=== PATIENT | male | born 1950 | race Native Hawaiian/Other Pacific Islander ===

== ENCOUNTER 2020-07-22 16:22 | Emergency (ER) | payer MEDICARE, MEDICAID ==
[~2020-07-22] VITALS: Ht 177.8 cm; Wt 83.9 kg
--- NOTE | ~2020-07-22 | EMS ---
[facility] [address] [place] [address] EMS Patient Care Report Name: CRISPIN BAUMAN Room: [facility].#: [id number] Admission: 07/22/20 Attend Phys: Discharge: Date of : 52 Report #: [id number] THIS REPORT FOR: //name// Report Transmitted: 07/22/2020 18:19 EMS Care Summary [facility] [place] Incident [id number] @ 07/22/2020 15:23 Incident Location [address] [place] [address] Patient Crispin Bauman Male, 70 Years 1950 Patient Address [address] [place] [address] Patient History Endocrine Condition - Other,Cerebral infarction, unspecified,Hypertension (HTN),Hyperlipidemia, Patient Allergies No known allergies, Patient Medications Eliquis, Zoloft, Lipitor, Fortamet, Neurontin, Sotalol, Chief Complaint Weakness Disposition Transported No Lights/[place] Dispatch Reason Sick Person Transported To [facility] Narrative [facility] dispatched from [facility] to residence for a sick. AOS, [facility] on scene with patient care. received report from [facility] that patient had been seen in the ER several times over the last few weeks for weakness. Upon patient [facility] [address] [place] [address] EMS Patient Care Report Name: CRISPIN BAUMAN [facility] [id number] Admission: 07/22/20 Attend Phys: Discharge: Date of : 52 Report #: [id number] contact, patient was seen laying supine in bed; no adventitious breath sounds, no gross bleeding, no obvious life threats. Patient was A&O x4 with a GCS of 15 complaining of not being able to use the restroom. Family on scene provided further information due to language barrier as patient primarily spoke [place]. Per family, patient was weaker than previously and confirmed that patient had not had a BM in 2 days. A hospital bracelet was observed on patient dated 07-17. Family confirmed that patient was seen in the hospital for weakness and tested positive for COVID. Family stated that patient had been weaker since coming home and that he had not been able to poop since coming home on the then stated that patient had diarrhea when he came home but hasn't been to today or yesterday. initial vitals as charted with 4 lead showing afib with a history of afib. Patient stated at this time that he had not been to the bathroom because "they no put me on the commode". Family adamantly denied this and stated they put him on the commode and that he wasn't able to go each time. Patient refused transport at this time and stated he just wanted help to the commode. Family agreed to place patient on the commode. Patient son transferred patient from supine to sit on the commode via [place] style. EMS stepped outside door with door open for patient privacy. Delay on scene. After a few minutes, family advised that patient did not go to the bathroom. Patient now requested transport to the hospital. Patient requested transport to [place]. Family stated that patient BRITTANY, his daughter, was hospitalized at [place] for COVID and requested transport to [place]. Family spoke with patient in [place] language with patient agreeing to transport to [place]. Due to patient location, the cot could not be placed next to patient. Further delay for patient family to assist him in dressing as patient requested. Once dressed, Patient son transferred patient from commode to wheelchair and patient was wheeled out to the garage to the cot. Patient was assisted to transfer from sit to stand with wheelchair removed from patient and cot placed behind him. Patient was assisted to sit on the cot. Once seated on the cot, seatbelts x4 were applied for patient safety. Patient medical history and medications were obtained from family on scene along with granddaughter contact info and patient daughter name. Family was uncertain of room number for patient daughter. Cot was moved to the unit where it was loaded and locked. In unit, repeat vitals were obtained as charted. Transport initiated. En route, patient vitals were monitored as charted. Patient was able to express no change in condition and denied onset of new symptoms and change in current symptoms. Patient comfort was attended to with position and temperature changes as requested. At destination, patient was removed from the monitor due to stability. Cot was unlocked, unloaded, and moved to the ER. In ER, patient was transferred from EMS cot to hospital bed via draw sheet x4. Verbal report was given to staff along with patient daugther and granddaughter info. Due to language barrier, patient was unable to sign EMS consent to transport and treat; receiving facility signed on behalf of patient. Transfer of care complete. [facility] remained out of service for decon due to COVID-19. Initial Vitals [facility] [address] [place] [address] EMS Patient Care Report Name: CRISPIN BAUMAN [id number] Admission: 07/22/20 Attend Phys: Discharge: Date of : 52 Report #: [id number] @15:39SpO2: 96, @16:00SpO2: 96, @16:12SpO2: 97, @15:39 @15:39P: 81,R: 18,BP: 133/80, @16:00P: 78,R: 18,BP: 138/82, @16:12P: 78,R: 18,BP: 133/83, @15:39GCS: 15, @16:00GCS: 15, @16:12GCS: 15, @15:34 Assessments @15:34MENTAL:SKIN:HEENT:LUNG SOUNDS:ABDOMEN:PELVIS//GI:EXTREMITIES:PULSE:NEURO: Impression Generalized Weakness Procedures @15:393-Lead ECGResponse: UnchangedSucceeded Timeline 15:23,Call Received 15:23,Dispatch Notified 15:23,Psap Call 15:23,Dispatched 15:24,En Route 15:33,On Scene 15:34,At Patient 15:34,BP: / M,PULSE: ,RR: R,SPO2: Ox,ETCO2: ,BG: ,PAIN: ,GCS: , 15:39,3-Lead ECG,Response: UnchangedSucceeded, 15:39,BP: / M,PULSE: ,RR: R,SPO2: 96 Ox,ETCO2: ,BG: ,PAIN: ,GCS: , 15:39,BP: / M,PULSE: ,RR: R,SPO2: Ox,ETCO2: ,BG: ,PAIN: ,GCS: , 15:39,BP: 133/80 M,PULSE: 81,RR: 18 R,SPO2: Ox,ETCO2: ,BG: ,PAIN: ,GCS: , 15:39,BP: / M,PULSE: ,RR: R,SPO2: Ox,ETCO2: ,BG: ,PAIN: ,GCS: 15, 16:00,BP: / M,PULSE: ,RR: R,SPO2: 96 Ox,ETCO2: ,BG: ,PAIN: ,GCS: , 16:00,BP: 138/82 M,PULSE: 78,RR: 18 R,SPO2: Ox,ETCO2: ,BG: ,PAIN: ,GCS: , 16:00,BP: / M,PULSE: ,RR: R,SPO2: Ox,ETCO2: ,BG: ,PAIN: ,GCS: 15, 16:01,Depart Scene 16:12,BP: / M,PULSE: ,RR: R,SPO2: 97 Ox,ETCO2: ,BG: ,PAIN: ,GCS: , 16:12,BP: 133/83 M,PULSE: 78,RR: 18 R,SPO2: Ox,ETCO2: ,BG: ,PAIN: ,GCS: , 16:12,BP: / M,PULSE: ,RR: R,SPO2: Ox,ETCO2: ,BG: ,PAIN: ,GCS: 15, 16:19,At Destination 16:19,[place] [address] EMS Patient Care Report Name: CRISPIN BAUMAN [facility] [id number] Admission: 07/22/20 Attend Phys: Discharge: Date of : 52 Report #: [id number] Disclaimer v1.1 Copyright 2020 [employer] This EMS Care Summary contains data elements from the applicable legal record (which may be displayed differently). It is designed to provide pertinent information for the following purposes: continuity of care, clinical quality, and state data reporting. The complete legal record is available to ED staff and administrators of the receiving hospital in [employer] Patient Tracker. All data is provided "as is."
[~2020-07-22 16:22] MED LIST: ELIQUIS5 M1 PO; LIPITOR80 MG PO; LISINOPRIL20 MG PO; METFORMIN HCL500 MG PO; NEURONTIN 300300 M1 PO; SORINE 80 MG TA80 M1 PO; VITAMIN D2000 UNIT PO
--- NOTE | 2020-07-22 17:15 | EKG ---
[place] [address] ELECTROCARDIOGRAM REPORT Name: IMER BAUMAN Room: [facility].R.#: [id number] Admission: Attend Phys: Discharge: Date of : 52 Date of Service: 07/22/20 1629 Report #: [id number] THIS REPORT FOR: //name// [facility] ED Test Date: 2020-07-22 Test Time: 16:29:24 Pat Name: MIER BAUMAN Department: Room: Gender: Sap Bpc Developer: : 1950 Requested By: Isis Rausch Order Number: [id number] MD: Jese Celeste Measurements Intervals [place] Rate: 92 P: AK: QRS: 35 QRSD: 51 T: QT: 511 QTc: 633 Interpretive Statements Atrial fibrillation Borderline low voltage, extremity leads Probable septal infarct, old Prolonged QT interval Baseline wander in lead(s) V3,V5 No previous ECG available for comparison Electronically Signed On 07-22-2020 17:14:58 HATCHERY WORKER by Jese Celeste [email or web address] <ELECTRONICALLY SIGNED> By: Jese Celeste MD, [facility] 07/22/20 1714 1629 1629 Jese Celeste MD, [facility] /EPI
[2020-07-22 17:33] LABS: ABSOLUTE LYMPHOCYTES 0.8 thou/uL (0.8-5.3); ABSOLUTE MONOCYTES 0.1 thou/uL (0.0-1.2); ABSOLUTE NEUTROPHILS 1.3 thou/uL (1.6-8.1); BASOPHILS 0.6 %; EOSINOPHILS 1.4 %; HEMATOCRIT 49.9 % (42.0-52.0); HEMOGLOBIN 16.9 gm/dL (14.0-18.0); LYMPHOCYTES 35.1 %; MCH 30.8 pg (26.0-34.0); MCHC 33.8 g/dL (28.0-37.0); MCV 91.2 fL (80.0-100.0); MONOCYTES 6.3 %; MPV 8.6 fl. (7.2-11.1); NUCLEATED RBCS 0 /100WBC; PLATELET COUNT* 148 thou/uL (150-400); POLYS 56.6 %; RBC 5.47 mil/uL (4.50-6.00); RDW-CV 15.5 % (10.5-14.5); WBC 2.3 thou/uL (4.0-11.0)
[2020-07-22 17:41] LABS: CALCIUM 8.5 mg/dL (8.5-10.1); CREATININE 1.3 mg/dL (0.6-1.3); POTASSIUM 3.6 mmol/L (3.5-5.1)
[2020-07-22 17:46] LABS: TOTAL BILIRUBIN 0.5 mg/dL (<0.1-1.0); TOTAL PROTEIN 7.8 g/dL (6.4-8.2)
[2020-07-22] MEDS ORDERED: PREDNISONE 20 M20 MG PO (18:10)
[2020-07-22] MEDS ORDERED: DOXYCYCLINE 10100 MG PO (18:10)
[2020-07-22] MEDS ORDERED: VENTOLIN HFA 1818 GM INH (18:10)
[2020-07-22 19:31] VITALS: BP 122/70
== END 2020-07-22 19:48 | disposition home or self-care (01) ==
LOC: M.ERS 16:22
PROVIDERS: Nurse Practitioner Family
DX: U07.1 COVID-19 (principal); E78.00 Pure hypercholesterolemia, unspecified; E11.9 Type 2 diabetes mellitus without complications; I48.91 Unspecified atrial fibrillation; I10 Essential (primary) hypertension; F17.210 Nicotine dependence, cigarettes, uncomplicated; Z79.899 Other long term (current) drug therapy